=== PATIENT | female | born 1960 | race Caucasian/White ===

== ENCOUNTER 2017-03-05 07:23 | Day surgery (SDC) | payer OTHER ==
[2014-02-23 11:30] VITALS: BP 148/86
[2017-03-05] MEDS ORDERED: LACTATED RINGERS 1,000 ML IV.SOLN IV ONE (08:00)
[2017-03-05] MEDS ORDERED: PROPOFOL 200 MG/20 ML VIAL IV ONE (08:00)
[2017-03-05] MEDS ORDERED: SALINE FLUSH 10 ML DISP.SYRIN IVF ONE (08:00)
[2017-03-05] MEDS ORDERED: LIDOCAINE HCL/PF 2% 100 MG/5 ML VIAL IJ ONE (08:00)
--- NOTE | 2017-03-05 11:09 | GI Report ---
REFERRING PHYSICIAN: Dr. [place] Irene RESTAURANT SERVICE MANAGER: Yahir Cantrell MD PROCEDURE MEDICATION: Propofol as per anesthesia. INDICATIONS: Patient is a 56-year-old woman with a history of adenomatous polyps. 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 She denies any interval changes in her stools or blood in her stool. No return of the pain episode. Unfortunately, she has gone back to cigarette smoking again. She is referred for the above indications. PROCEDURE PERFORMED: Colonoscopy, biopsy, and polypectomy. DESCRIPTION OF PROCEDURE: An TrewCap video colonoscope was advanced to the rectum. In the rectosigmoid between 15 and 20 cm, we cold biopsy removed 3 flat polyps, hyperplastic appearing. The main colon was fairly redundant all the way to the cecum. The appendiceal orifice and ileocecal valve were normal. On slow withdrawal, the cecum, ascending colon, and transverse colon had redundancy. No obvious intraluminal lesions noted. The descending colon had no obvious ischemic changes at present. In the sigmoid, again, some redundancy and a number of flat probably hyperplastic polyps biopsy removed in the rectosigmoid colon. RECOMMENDATIONS: 1. Pending the pathology of the polyps, consider looking at her colon again in 5 years. 2. Again, recommend strongly she discontinue tobacco usage. 3. Increase fiber in the diet. 4. She is to see Dr. Irene in follow up. cc: Dr. France BACA
== END 2017-03-05 07:24 ==
LOC: OPSURG 07:23
PROVIDERS: ATTEND Internal Medicine Gastroenterology
DX: D12.7 Benign neoplasm of rectosigmoid junction (principal)
CPT/HCPCS: 45385; 88305; J2001; J2704; J7120; S1016

== ENCOUNTER 2018-07-16 08:54 | Outpatient (CLI) | payer SELFPAY ==
[2014-02-23 11:30] VITALS: BP 148/86
[2018-07-16 09:43] LABS: eGFR (Non-African) > 60
== END 2018-07-16 08:56 ==
LOC: LAB 08:54
PROVIDERS: ATTEND Family Medicine
DX: Z00.00 Encounter for general adult medical examination without abnormal findings (principal); Z13.29 Encounter for screening for other suspected endocrine disorder; Z13.220 Encounter for screening for lipoid disorders; Z79.899 Other long term (current) drug therapy
CPT/HCPCS: 36415; 80053; 80061; 84443

== ENCOUNTER 2019-01-06 09:45 | Outpatient (CLI) | payer OTHER ==
[2014-02-23 11:30] VITALS: BP 148/86
== END 2019-01-06 09:50 ==
LOC: LAB 09:45
PROVIDERS: ATTEND Family Medicine
DX: E03.9 Hypothyroidism, unspecified (principal)
CPT/HCPCS: 36415; 84443